=== PATIENT | male | born 1985 | race Caucasian/White ===

== ENCOUNTER 2017-09-30 18:28 | Emergency (ER) | payer MEDICAID ==
[~2017-09-30] VITALS: Ht 172.7 cm; Wt 139.3 kg
[~2017-09-30 18:28] MED LIST: ONDA4TAB6 PO
[2017-09-30] MEDS ORDERED: AZIT-63 PO (20:06)
[2017-09-30 20:14] VITALS: BP 155/88
== END 2017-09-30 20:14 | disposition home or self-care (01) ==
LOC: ER 18:30
DX: J02.9 Acute pharyngitis, unspecified (principal); R50.9 Fever, unspecified; F17.200 Nicotine dependence, unspecified, uncomplicated
CPT/HCPCS: 99283